=== PATIENT | female | born 1980 | race Caucasian/White ===

== ENCOUNTER 2021-12-24 17:22 | Emergency (ER) | payer OTHER ==
--- OUTSIDE RECORDS SUMMARY | 2021-12-24 17:59 | EXTERNAL MEDICAL SUMMARY RPT | Continuity of Care Document ---
:1980 Author Organization [facility] Address [address] [place] [address] Phone Care Team Providers Name Role Phone Smith Referrals, Brenda Unavailable Unavailable Smith Referrals, Brenda Unavailable Unavailable Thanh Patient Registrar, Lance Unavailable Unavai lable Karen, Provider Unavailable Unavailable Smith Referrals, Brenda Unavailable Unavailable Smith Referrals, Brenda Unavailable Unavailable Allergies No information. Encounters No information. Functional Status No information. Immunizations No information. Medications No information. Problems No information. Procedures date description facility [id number] XR KNEE 4 OR MORE VIEWS All [id number] XR KNEE 4 OR MORE VIEWS All [id number] XR KNEE 4 OR MORE VIEWS All [id number] XR KNEE 4 OR MORE VIEWS All [id number] XR KNEE 4 OR MORE VIEWS All [id number] XR KNEE 4 OR MORE VIEWS All Results/Labs test date author facility value unit interpret ation Result panel 1 (unknown) (no (unknown) (unknown) (no value) (units (unk nown) date) unknown) (unknown) (no (unknown) (unknown) [id number] (units (unkno wn) date) unknown) (unknown) (no (unknown) (unknown) 10/29/21 (units (unkno wn) date) unknown) (unknown) (no (unknown) (unknown) [address] [place] [address] (units (unknown) date) unknown) (unknown) (no (unknown) (unknown) Accession (units (unkn own) date) Number: unknown) [id number] (unknown) (no (unknown) (unknown) Age/Sex: 41 / F (units (unknown) date) Date of Service: unknown) (unknown) (no (unknown) (unknown) [place] (units ( unknown) date) [id number] unknown) (unknown) (no (unknown) (unknown) Approved by: (units (u nknown) date) Michaelche Lee M.D. on 10/29/2021 at 16:01 (unknown) (no (unknown) (unknown) Bones: No (units (unkn own) date) fractures or unknown) dislocations. No suspicious bony lesions. (unknown) (no (unknown) (unknown) COMPARISON: (units (un known) date) None. unknown) (unknown) (no (unknown) (unknown) Consider (units (unkno wn) date) follow-up MR unknown) evaluation (unknown) (no (unknown) (unknown) : 1980 (units (unknown) date) Acct:[id number] unknown) (unknown) (no (unknown) (unknown) FINDINGS: (units (unkn own) date) unknown) (unknown) (no (unknown) (unknown) IMPRESSION: (units (un known) date) unknown) (unknown) (no (unknown) (unknown) INDICATIONS: (units (u nknown) date) Left Anterior unknown) knee pain (unknown) (no (unknown) (unknown) [facility] (units (unknown) date) unknown) (unknown) (no (unknown) (unknown) Loc: RAD (units (unkno wn) date) unknown) (unknown) (no (unknown) (unknown) Ordering (units (unkno wn) date) Provider: unknown) Ivelisse Dean (unknown) (no (unknown) (unknown) Osteochondral (units ( unknown) date) defect unknown) (unknown) (no (unknown) (unknown) PROCEDURE: XR (units ( unknown) date) KNEE LT 1TO2V unknown) (unknown) (no (unknown) (unknown) Patient: (units (unkno wn) date) Yoko Lovell Antonia unknown) MR#: [id number] (unknown) (no (unknown) (unknown) Probable (units (unkno wn) date) osteochondral unknown) defect involving the lateral femoral condyle articular (unknown) (no (unknown) (unknown) Procedure: XR (units ( unknown) date) knee LT 1to2V unknown) (unknown) (no (unknown) (unknown) Signed (units (unkno wn) date) unknown) (unknown) (no (unknown) (unknown) Soft tissues: (units ( unknown) date) Moderate joint unknown) effusion. No suspicious soft tissue (unknown) (no (unknown) (unknown) TECHNIQUE: 3 (units (u nknown) date) views of the knee unknown) were acquired. (unknown) (no (unknown) (unknown) XRay Report (units (un known) date) unknown) (unknown) (no (unknown) (unknown) calcifications. (units (unknown) date) unknown) (unknown) (no (unknown) (unknown) noted involving (units (unknown) date) the lateral unknown) femoral condyle articular surface. (unknown) (no (unknown) (unknown) surface. (units (unkno wn) date) unknown) Result panel 2 (unknown) (no (unknown) (unknown) (no value) (units (unk nown) date) unknown) (unknown) (no (unknown) (unknown) [id number] (units (unkno wn) date) unknown) (unknown) (no (unknown) (unknown) 11/04/21 (units (unkno wn) date) unknown) (unknown) (no (unknown) (unknown) 1. 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 Lateral (units (unk nown) date) meniscal tearing. unknown) (unknown) (no (unknown) (unknown) 3. Low-grade (units (u nknown) date) partial thickness unknown) lateral collateral ligament tear. (unknown) (no (unknown) (unknown) 4. Knee joint (units ( unknown) date) effusion. unknown) Intra-articular loose body. (unknown) (no (unknown) (unknown) 5. Patellar (units (un known) date) tendinitis. unknown) (unknown) (no (unknown) (unknown) Accession Number: (units (unknown) date) [id number] unknown) (unknown) (no (unknown) (unknown) Age/Sex: 41 / F (units (unknown) date) Date of Service: unknown) (unknown) (no (unknown) (unknown) [place], [place] (units ( unknown) date) [id number] unknown) (unknown) (no (unknown) (unknown) Anterior (units (unkno wn) date) structures: The unknown) quadriceps and patellar tendons appear intact. Mild (unknown) (no (unknown) (unknown) Approved by: (units (u nknown) date) Onur Amaya M.D. unknown) on 11/04/2021 at 12:19 (unknown) (no (unknown) (unknown) Bones and (units (unkn own) date) cartilage: unknown) Subchondral cyst formation within the central tibial (unknown) (no (unknown) (unknown) COMPARISON: (units (un known) date) [facility], unknown) CR, XR KNEE LT 1TO2V, 10/29/2021, 13:05. (unknown) (no (unknown) (unknown) Cruciate (units (unkno wn) date) ligaments: The unknown) anterior and posterior cruciate ligaments appear (unknown) (no (unknown) (unknown) : 1980 (units (unknown) date) Acct:[id number] unknown) (unknown) (no (unknown) (unknown) Dictated by: (units (u nknown) date) Onur Amaya M.D. unknown) on 11/04/2021 at 12:15 (unknown) (no (unknown) (unknown) FINDINGS: (units (unkn own) date) unknown) (unknown) (no (unknown) (unknown) IMPRESSION: (units (un known) date) unknown) (unknown) (no (unknown) (unknown) INDICATIONS: Left (units (unknown) date) KNEE unknown) PAIN/CARTILAGE TEAR (unknown) (no (unknown) (unknown) Image quality: (units (unknown) date) Excellent. unknown) (unknown) (no (unknown) (unknown) [facility] (units (unknown) date) unknown) (unknown) (no (unknown) (unknown) Joint space: (units (u nknown) date) There is a small unknown) knee joint effusion. There is an intra (unknown) (no (unknown) (unknown) Lateral (units (unkno wn) date) structures: The unknown) lateral collateral ligament demonstrates mild T2 (unknown) (no (unknown) (unknown) Loc: MRI (units (unkno wn) date) unknown) (unknown) (no (unknown) (unknown) Magnetic (units (unkno wn) date) Resonance Report unknown) (unknown) (no (unknown) (unknown) Medial (units (unkno wn) date) structures: The unknown) medial collateral ligament appears intact. Visualized (unknown) (no (unknown) (unknown) Menisci: Medial (units (unknown) date) meniscus is unknown) intact. There is truncation of the free edge of (unknown) (no (unknown) (unknown) Noncontrast (units (un known) date) sagittal PD fast unknown) spin echo and T2 fast spin echo with fat (unknown) (no (unknown) (unknown) Normal (units (unkno wn) date) unknown) (unknown) (no (unknown) (unknown) Ordering (units (unkno wn) date) Provider: unknown) Ivelisse Dean (unknown) (no (unknown) (unknown) PROCEDURE: MR (units ( unknown) date) KNEE LT WO CON unknown) (unknown) (no (unknown) (unknown) Patient: (units (unkno wn) date) Yoko Lovell J unknown) MR#: [id number] (unknown) (no (unknown) (unknown) Procedure: MR (units ( unknown) date) knee LT wo con unknown) (unknown) (no (unknown) (unknown) Signed (units (unkno wn) date) unknown) (unknown) (no (unknown) (unknown) T2 signal (units (unkn own) date) unknown) (unknown) (no (unknown) (unknown) TECHNIQUE: (units (unk nown) date) unknown) (unknown) (no (unknown) (unknown) anterior (units (unkno wn) date) unknown) (unknown) (no (unknown) (unknown) appear intact. (units (unknown) date) The popliteus unknown) tendon appears normal. Iliotibial band appears (unknown) (no (unknown) (unknown) appearing (units (unkn own) date) synovial plicae unknown) are incidentally noted. (unknown) (no (unknown) (unknown) articular loose (units (unknown) date) unknown) (unknown) (no (unknown) (unknown) articular surface (units (unknown) date) extension, unknown) indicating degenerative tearing. (unknown) (no (unknown) (unknown) aspect measuring (units (unknown) date) roughly 2-3 mm unknown) diameter. (unknown) (no (unknown) (unknown) associated (units (unk nown) date) unknown) (unknown) (no (unknown) (unknown) body measuring 5 (units (unknown) date) mm within the unknown) lateral suprapatellar recess. No Kay's cyst. (unknown) (no (unknown) (unknown) craniocaudal, (units ( unknown) date) with a surrounding unknown) high T2 intensity rim, indicating an unstable (unknown) (no (unknown) (unknown) echo with (units (unkn own) date) unknown) (unknown) (no (unknown) (unknown) edema in the (units (u nknown) date) unknown) (unknown) (no (unknown) (unknown) elevation at the (units (unknown) date) femoral origin. unknown) The long and short heads of the biceps (unknown) (no (unknown) (unknown) elevation at the (units (unknown) date) patellar insertion unknown) of the patellar tendon. Patellar alignment (unknown) (no (unknown) (unknown) fat saturation, (units (unknown) date) and axial PD fast unknown) spin echo with fat saturation through the (unknown) (no (unknown) (unknown) femoral condyle, (units (unknown) date) measuring 10 mm unknown) transverse by 20 mm anteroposterior by 5 mm (unknown) (no (unknown) (unknown) femoris tendon (units (unknown) date) unknown) (unknown) (no (unknown) (unknown) inferior (units (unkno wn) date) unknown) (unknown) (no (unknown) (unknown) infrapatellar fat (units (unknown) date) pad. unknown) (unknown) (no (unknown) (unknown) intact. (units (unkno wn) date) unknown) (unknown) (no (unknown) (unknown) involving the (units ( unknown) date) articular surface unknown) of the mid/posterior weight-bearing aspect of (unknown) (no (unknown) (unknown) is (units (unkno wn) date) unknown) (unknown) (no (unknown) (unknown) knee. (units (unkno wn) date) unknown) (unknown) (no (unknown) (unknown) lateral meniscal (units (unknown) date) body involving the unknown) inner 3rd, demonstrating superior and (unknown) (no (unknown) (unknown) lesion (units (unkno wn) date) unknown) (unknown) (no (unknown) (unknown) normal. No (units (unk nown) date) femoral trochlear unknown) dysplasia or ventral trochlear prominence. No (unknown) (no (unknown) (unknown) normal. (units (unkno wn) date) unknown) (unknown) (no (unknown) (unknown) of the pes (units (unk nown) date) anserinus tendons unknown) appear normal. No abnormal bursal fluid. (unknown) (no (unknown) (unknown) osteochondral (units ( unknown) date) lesion. There are unknown) a few small adjacent bony fragments at its (unknown) (no (unknown) (unknown) plateau (units (unkno wn) date) unknown) (unknown) (no (unknown) (unknown) portions (units (unkno wn) date) unknown) (unknown) (no (unknown) (unknown) posterior horn (units (unknown) date) lateral meniscus. unknown) There is amorphous high signal intensity (unknown) (no (unknown) (unknown) posteriorly (units (un known) date) measuring 12 mm unknown) diameter. There is a well corticated osteochondral (unknown) (no (unknown) (unknown) sagittal 3-D (units (u nknown) date) FLASH with fat unknown) saturation; coronal T1 spin echo and PD fast spin (unknown) (no (unknown) (unknown) saturation, (units (un known) date) unknown) (unknown) (no (unknown) (unknown) signal (units (unkno wn) date) unknown) (unknown) (no (unknown) (unknown) the lateral (units (un known) date) unknown) (unknown) (no (unknown) (unknown) the (units (unkno wn) date) unknown) (unknown) (no (unknown) (unknown) unstable (units (unkno wn) date) osteochondral unknown) fragment. (unknown) (no (unknown) (unknown) within the (units (unk nown) date) unknown) Social History date description facility [id number] Former smoker All [id number] Former smoker All [id number] Former smoker All [id number] Former smoker All [id number] Former smoker All [id number] Former smoker All Vital Signs No information.
[2021-12-24 18:00] LABS: BASOPHILS # (AUTO) 0.1 10^3/uL (0.0-0.1); BASOPHILS % (AUTO) 0.7 %; EOSINOPHILS # (AUTO) 0.1 10^3/uL (0.0-0.7); EOSINOPHILS % (AUTO) 1.1 %; HCT - HEMATOCRIT 39.3 % (37.0-47.0); HGB - HEMOGLOBIN 13.3 g/dL (12.0-16.0); LYMPHOCYTES # (AUTO) 2.2 10^3/uL (1.5-3.5); LYMPHOCYTES % (AUTO) 29.3 %; MEAN CORPUSCULAR HEMOGLOBIN 30.1 pg (27.0-31.0); MEAN CORPUSCULAR HGB CONC 33.8 g/dL (32.0-36.0); MEAN CORPUSCULAR VOLUME 88.9 fL (81.0-99.0); MEAN PLATELET VOLUME 11.3 fL (7.9-10.8); MONOCYTES # (AUTO) 0.5 10^3/uL (0.0-1.0); MONOCYTES % (AUTO) 6.3 %; NEUTROPHILS # (AUTO) 4.7 10^3/uL (1.5-6.6); NEUTROPHILS % (AUTO) 62.3 %; PLT - PLATELET COUNT 271 10^3/uL (130-450); RED BLOOD COUNT 4.42 10^6/uL (4.20-5.40); RED CELL DISTRIBUTION WIDTH 12.5 % (12.0-15.0); WHITE BLOOD COUNT 7.5 x10^3/uL (4.8-10.8)
[2021-12-24 18:10] LABS: ALBUMIN/GLOBULIN RATIO 1.2 (1.0-2.2); CALCIUM 9.8 mg/dL (8.5-10.3); CREATININE 0.6 mg/dL (0.4-1.0); POTASSIUM 3.6 mmol/L (3.5-5.0); TOTAL PROTEIN 7.3 g/dL (6.7-8.2)
--- NOTE | 2021-12-24 19:54 | ED Physician Documentation ---
History of Present Illness - Stated complaint Stated Complaint: ABD PX - Chief complaint Chief Complaint: Back Pain - History obtained from History obtained from: Patient - History of Present Illness Timing: How many days ago (2) Pain level max: 8 Pain level now: 3 - Additonal information Additional information: Patient is a 41-year-old female who presents to the emergency department with left-sided flank pain. This started 2 days ago. Worse with movement, better with rest. Does not recall any injuries. She went to the walk-in clinic today and was sent here for further evaluation. She states that she is awaiting knee surgery on her left knee. She states she has not had any trauma. No falls. No loss of bowel or bladder control. No urinary symptoms. No nausea. No vomiting. Denies any possibility of . No fevers. No chills. She states she was given a shot at urgent care. Presumably Toradol? Review of Systems Constitutional: denies: Fever, Chills Respiratory: denies: Cough GI: denies: Nausea, Vomiting, Constipation, Diarrhea Skin: denies: Rash Musculoskeletal: denies: Neck pain Neurologic: denies: Focal weakness, Numbness, Headache PD PAST MEDICAL HISTORY - Past Medical History Past Medical History: No - Past Surgical History Past Surgical History: No - Present Medications Home Medications: Ambulatory Orders Medication Instructions Recorded Confirmed Amox/Clav 875/125 [Augmentin] 1 each PO Q8H #30 tablet 12/24/21 Fluconazole [Diflucan] 1 tablet PO ONCE 1 Days #1 tablet 12/24/21 - Allergies Allergies/Adverse Reactions: Allergies Allergy/AdvReac Type Severity Reaction Status Date / Time No Known Drug Allergies Allergy Verified 12/24/21 17:34 - Living Situation Living Situation: reports: With family Living Arrangement: reports: At home - Social History Does the pt have substance abuse?: No - Family History Family history: reports: Non contributory PD ED PE NORMAL - Vitals Vital signs reviewed: Yes - General General: Alert and oriented X 3, No acute distress, Well developed/nourished - HEENT HEENT: Moist mucous membranes - Neck Neck: Supple, no meningeal sign - Cardiac Cardiac: RRR, Strong equal pulses - Respiratory Respiratory: No respiratory distress, Clear bilaterally - Abdomen Abdomen: Soft, Non tender, Non distended - Back Back: No CVA TTP, No spinal TTP - Derm Derm: Warm and dry, No rash - Extremities Extremities: No edema - Neuro Neuro: Alert and oriented X 3 - Psych Psych: Normal mood, Normal affect Results - Vitals Vitals: Vital Signs - 24 hr 12/24/21 12/24/21 17:30 21:51 Temperature 36.8 C 36.6 C Heart Rate 94 82 Respiratory 16 16 Rate Blood Pressure 154/98 H 127/74 O2 Saturation 97 98 Oxygen O2 Source Room air - Labs Labs: Laboratory Tests 12/24/21 12/24/21 12/24/21 17:53 17:53 17:53 WBC 7.5 RBC 4.42 Hgb 13.3 Hct 39.3 MCV 88.9 MCH 30.1 MCHC 33.8 RDW 12.5 Plt Count 271 MPV 11.3 H Neut # (Auto) 4.7 Lymph # (Auto) 2.2 Dooly # (Auto) 0.5 Eos # (Auto) 0.1 Baso # (Auto) 0.1 Absolute Nucleated RBC 0.00 Nucleated RBC % 0.0 Sodium 139 Potassium 3.6 Chloride 103 Carbon Dioxide 27 Anion Gap 9.0 BUN 12 Creatinine 0.6 Estimated GFR (MDRD) 110 Glucose 133 H Calcium 9.8 Total Bilirubin 1.0 AST 16 ALT 14 Alkaline Phosphatase 57 Total Protein 7.3 Albumin 4.0 Globulin 3.3 Albumin/Globulin Ratio 1.2 Lipase 38 Serum HCG, Qual NEGATIVE Urine Color Urine Clarity Urine pH Ur Specific [place] Urine Protein Urine Glucose (UA) Urine Ketones Urine Occult Blood Urine Nitrite Urine Bilirubin Urine Urobilinogen Ur Leukocyte Esterase Ur Microscopic Review Urine Culture Comments 12/24/21 18:04 WBC RBC Hgb Hct MCV MCH MCHC RDW Plt Count MPV Neut # (Auto) Lymph # (Auto) [place] # (Auto) Eos # (Auto) Baso # (Auto) Absolute Nucleated RBC Nucleated RBC % Sodium Potassium Chloride Carbon Dioxide Anion Gap BUN Creatinine Estimated GFR (MDRD) Glucose Calcium Total Bilirubin AST ALT Alkaline Phosphatase Total Protein Albumin Globulin Albumin/Globulin Ratio Lipase Serum HCG, Qual Urine Color DARK YELLOW Urine Clarity CLEAR Urine pH 5.5 Ur Specific [place] >=1.030 H Urine Protein NEGATIVE Urine Glucose (UA) NEGATIVE Urine Ketones TRACE Urine Occult Blood NEGATIVE Urine Nitrite NEGATIVE Urine Bilirubin NEGATIVE Urine Urobilinogen 0.2 (NORMAL) Ur Leukocyte Esterase NEGATIVE Ur Microscopic Review NOT INDICATED Urine Culture Comments NOT INDICATED - Rads (name of study) CT abd/pelvis Radiology: Final report received, EMP read contemporaneously, See rad report PD MEDICAL DECISION MAKING - ED course Complexity details: reviewed results, re-evaluated patient, considered differential, d/w patient, d/w family ED course: 41-year-old female presents with left flank pain. Her CT scan shows what appears to be colitis. Inflammatory versus infectious. Does not have any history of inflammatory bowel disease. No family history of inflammatory bowel disease. She is not having any diarrhea or constipation. We discussed options including watchful waiting versus antibiotics. She elects antibiotics at this time. We will place her on Augmentin. She will follow-up with her doctor for a colonoscopy and further care. Patient is well-appearing, nontoxic. Afebrile. She has pain medication at home. Patient counseled regarding signs and symptoms for which I believe and urgent re-evaluation would be necessary. Patient with good understanding of and agreement to plan and is comfortable going home at this time This document was made in part using voice recognition software. While efforts are made to proofread this document, sound alike and grammatical errors may occur. Departure - Departure Disposition: Home, Self Care Clinical Impression: Colitis Condition: Good Instructions: ED Gastroenteritis Bacterial, ED Colitis Ulcerative Follow-Up: EL ZAZUETA ARNP [Primary Care Provider] - Within 1 week Prescriptions: Amox/Clav 875/125 [Augmentin] 1 each PO Q8H #30 tablet Fluconazole [Diflucan] 1 tablet PO ONCE 1 Days #1 tablet Comments: Please take all antibiotics until gone. Please follow-up with your doctor for further care. As we discussed you will likely need a colonoscopy to ensure this is not an inflammatory bowel disease. I have also sent a prescription for Diflucan to the pharmacy for you to take when the antibiotics are complete. Your prescriptions were sent to the [facility]. FINDINGS: Image quality: Excellent. Lung bases: There is minimal atelectasis in the lung bases. Heart: Heart is normal in size. ABDOMEN: Liver: No mass lesion. Gallbladder: Multiple small dependent gallstones are demonstrated in the gallbladder without wall thickening or pericholecystic fluid. Biliary ducts: No biliary ductal dilatation. Pancreas: Unremarkable. Spleen: Normal in size. Adrenal Glands: No adrenal nodules. Kidneys and Ureters: No hydronephrosis. Stomach and Bowel: Stomach and small bowel loops are normal in caliber and wall thickness. The appendix is normal in appearance. There is diffuse colonic wall thickening involving the descending, transverse, and descending colon with pericolonic fat stranding and mucosal enhancement consistent with a colitis. Colonic diverticulosis is present without acute diverticulitis. Peritoneum: No abnormal intraperitoneal fluid. No free air. Ventral Wall: No hernia. Abdominal Nodes: No retroperitoneal or mesenteric adenopathy by size criteria. Vessels: Aorta and inferior vena cava are normal in size. PELVIS: Pelvic Organs: Unremarkable. Bladder: Unremarkable. Pelvic Nodes: No enlarged lymph nodes. Miscellaneous: No inguinal hernias are seen. Bones: Visualized osseous structures demonstrate no suspicious focal lesions. IMPRESSION: 1. Extensive segmental colonic wall thickening involving the descending, transverse, segmental colon with pericolonic fat stranding consistent with an infectious or inflammatory colitis. 2. Cholelithiasis without evidence of cholecystitis. Discharge Date/Time: 12/24/21 21:51
[2021-12-24] MEDS ORDERED: iohexoL-300 100 ML VIAL ONE (20:04)
[2021-12-24 20:13] LABS: BILIRUBIN,URINE NEGATIVE (NEGATIVE); GLUCOSE, URINE (UA) NEGATIVE (NEGATIVE); KETONES,URINE (UA) TRACE mg/dL (NEGATIVE); LEUKOCYTE ESTERASE, URINE NEGATIVE (NEGATIVE); NITRITE,URINE NEGATIVE (NEGATIVE); OCCULT BLOOD,URINE NEGATIVE (NEGATIVE); PH,URINE 5.5 PH (5.0-7.5); PROTEIN,URINE NEGATIVE (NEGATIVE); UROBILINOGEN,URINE 0.2 (NORMAL) E.U./dL (NORMAL)
[2021-12-24 20:14] LABS: CLARITY,URINE CLEAR (CLEAR)
[2021-12-24 20:29] LABS: HCG,QUALITATIVE BLOOD NEGATIVE
[2021-12-24] MEDS ORDERED: iohexoL-300 100 ML VIAL IVP ONE (20:30)
--- NOTE | 2021-12-24 21:26 | CT Report ---
PROCEDURE: ABDOMEN/PELVIS W INDICATIONS: L flank pain CONTRAST: 100 ML OMNI 300 TECHNIQUE: After the administration of intravenous contrast, 5 mm thick sections acquired from the diaphragms to the symphysis. 5 mm thick coronal and sagittal reformats were acquired. For radiation dose reducti on, the following was used: automated exposure control, adjustment of mA and/or kV according to luz maria ent size. COMPARISON: None. FINDINGS: Image quality: Excellent. Lung bases:There is minimal atelectasis in the lung bases. Heart: Heart is normal in size. ABDOMEN: Liver: No mass lesion. Gallbladder:Multiple small dependent gallstones are demonstrated in the gallbladder without wall thi ckening or pericholecystic fluid. Biliary ducts: No biliary ductal dilatation. Pancreas: Unremarkable. Spleen: Normal in size. Adrenal Glands: No adrenal nodules. Kidneys and Ureters: No hydronephrosis. Stomach and Bowel: Stomach and small bowel loops are normal in caliber and wall thickness. The appen ariana is normal in appearance. There is diffuse colonic wall thickening involving the descending, trans verse, and descending colon with pericolonic fat stranding and mucosal enhancement consistent with a colitis. Colonic diverticulosis is present without acute diverticulitis. Peritoneum: No abnormal intraperitoneal fluid. No free air. Ventral Wall: No hernia. Abdominal Nodes: No retroperitoneal or mesenteric adenopathy by size criteria. Vessels: Aorta and inferior vena cava are normal in size. PELVIS: Pelvic Organs: Unremarkable. Bladder: Unremarkable. Pelvic Nodes: No enlarged lymph nodes. Miscellaneous: No inguinal hernias are seen. Bones: Visualized osseous structures demonstrate no suspicious focal lesions. IMPRESSION: 1. Extensive segmental colonic wall thickening involving the descending, transverse, segmental colon with pericolonic fat stranding consistent with an infectious or inflammatory colitis. 2. Cholelithiasis without evidence of cholecystitis. Reviewed by: Asif Eubanks MD on 12/24/2021 9:24 PM PST Approved by: Asif Eubanks MD on 12/24/2021 9:24 PM PST Station ID: [id number]
[2021-12-24] MEDS ORDERED: AMOX/CLAV 875 MG/125 MG TABLET PO STA (21:37)
[2021-12-24 21:52] VITALS: BP 127/74
--- NOTE | 2021-12-25 14:00 | ED Physician Documentation ---
ED Addendum - Addendum Addendum: 12/25/21 13:57 Patient called to state that she is still having pain in the Toradol she was prescribed from the walk-in clinic is not helping, request something stronger. We will prescribe a small amount of Vicodin for her. This document was made in part using voice recognition software. While efforts are made to proofread this document, sound alike and grammatical errors may occur. Departure - Departure Disposition: 01 Home, Self Care Clinical Impression: Colitis Condition: Good Instructions: ED Gastroenteritis Bacterial, ED Colitis Ulcerative Follow-Up: EL ZAZUETA ARNP [Primary Care Provider] - Within 1 week Prescriptions: Amox/Clav 875/125 [Augmentin] 1 each PO Q8H #30 tablet Fluconazole [Diflucan] 1 tablet PO ONCE 1 Days #1 tablet HYDROcod/ACETAM 5/325 [Hillister 5/325] 1 - 2 ea PO Q6H PRN #14 tablet PRN Reason: Pain Comments: Please take all antibiotics until gone. Please follow-up with your doctor for further care. As we discussed you will likely need a colonoscopy to ensure this is not an inflammatory bowel disease. I have also sent a prescription for Diflucan to the pharmacy for you to take when the antibiotics are complete. Your prescriptions were sent to the [facility]. FINDINGS: Image quality: Excellent. Lung bases: There is minimal atelectasis in the lung bases. Heart: Heart is normal in size. ABDOMEN: Liver: No mass lesion. Gallbladder: Multiple small dependent gallstones are demonstrated in the gallbladder without wall thickening or pericholecystic fluid. Biliary ducts: No biliary ductal dilatation. Pancreas: Unremarkable. Spleen: Normal in size. Adrenal Glands: No adrenal nodules. Kidneys and Ureters: No hydronephrosis. Stomach and Bowel: Stomach and small bowel loops are normal in caliber and wall thickness. The appendix is normal in appearance. There is diffuse colonic wall thickening involving the descending, transverse, and descending colon with pericolonic fat stranding and mucosal enhancement consistent with a colitis. Colonic diverticulosis is present without acute diverticulitis. Peritoneum: No abnormal intraperitoneal fluid. No free air. Ventral Wall: No hernia. Abdominal Nodes: No retroperitoneal or mesenteric adenopathy by size criteria. Vessels: Aorta and inferior vena cava are normal in size. PELVIS: Pelvic Organs: Unremarkable. Bladder: Unremarkable. Pelvic Nodes: No enlarged lymph nodes. Miscellaneous: No inguinal hernias are seen. Bones: Visualized osseous structures demonstrate no suspicious focal lesions. IMPRESSION: 1. Extensive segmental colonic wall thickening involving the descending, transverse, segmental colon with pericolonic fat stranding consistent with an infectious or inflammatory colitis. 2. Cholelithiasis without evidence of cholecystitis. Discharge Date/Time: 12/24/21 21:51
== END 2021-12-24 21:51 | disposition home or self-care (01) ==
LOC: ED 17:22
DX: K52.9 Noninfective gastroenteritis and colitis, unspecified (principal)
CPT/HCPCS: 36415; 74177; 80053; 81003; 83690; 84703; 85025; 99282; 99284; A9270; Q9967; 81001; 87086

== ENCOUNTER 2022-03-27 10:26 | Emergency (ER) | payer OTHER ==
[2022-03-27 11:27] VITALS: BP 137/86
--- NOTE | 2022-03-27 11:39 | ED Physician Documentation ---
PD HPI URI - Stated complaint Stated Complaint: SORE THROAT,FEVER - Chief complaint Chief Complaint: Resp - History obtained from History obtained from: Patient - Additional information Additional information: 42-year-old woman with history of hypertension, otherwise healthy. She's had two Covid vaccinations in the past and had Covid once in the past. She developed a sore throat and bodyaches yesterday. Today took two Covid tests and they were both positive. She's not short of breath PD PAST MEDICAL HISTORY - Past Surgical History Past Surgical History: No - Present Medications Home Medications: Ambulatory Orders Medication Instructions Recorded Confirmed Benzonatate [Tessalon] 200 mg PO TID PRN #20 cap 03/27/22 Losartan [Cozaar] 50 ng PO DAILY 03/27/22 03/27/22 - Allergies Allergies/Adverse Reactions: Allergies Allergy/AdvReac Type Severity Reaction Status Date / Time No Known Drug Allergies Allergy Verified 03/27/22 11:27 - Social History Does the pt smoke?: No Smoking Status: Never smoker Does the pt drink ETOH?: No Does the pt have substance abuse?: No - Immunizations Immunizations are current?: Yes PD ED PE NORMAL - Vitals Vital signs reviewed: Yes - General General: Alert and oriented X 3, No acute distress - Respiratory Respiratory: No respiratory distress - Derm Derm: No rash - Neuro Neuro: Alert and oriented X 3, Normal speech Results - Vitals Vitals: Vital Signs - 24 hr 03/27/22 11:23 Temperature 36.8 C Heart Rate 102 H Respiratory 18 Rate Blood Pressure 137/86 H O2 Saturation 98 Oxygen O2 Source Room air PD Medical Decision Making - ED course ED course: 42 year old woman with symptomatic Covid. We discussed antiviral therapy with basim. After discussion of risks and benefits, she ended up declining and just wanted something for the cough. Departure - Departure Disposition: 01 Home, Self Care Clinical Impression: COVID-19 Condition: Good Record reviewed to determine appropriate education?: Yes Instructions: ED Viral Syndrome Prescriptions: Benzonatate [Tessalon] 200 mg PO TID PRN #20 cap PRN Reason: Cough Comments: Return if you worsen.
== END 2022-03-27 11:50 | disposition home or self-care (01) ==
LOC: ED 10:26
DX: U07.1 COVID-19 (principal)
CPT/HCPCS: 99282; 99283